=== PATIENT | female | born 1995 | race Asian ===

== ENCOUNTER 2022-08-25 10:57 | Emergency (ER) | payer OTHER ==
[2022-08-25 11:22] LABS: BASOPHILS % (AUTO) 0.2 %; EOSINOPHILS # (AUTO) 0.1 10^3/uL (0.0-0.7); HGB - HEMOGLOBIN 11.9 g/dL (12.0-16.0); LYMPHOCYTES # (AUTO) 1.8 10^3/uL (1.5-3.5); LYMPHOCYTES % (AUTO) 30.5 %; MEAN CORPUSCULAR HEMOGLOBIN 29.9 pg (27.0-31.0); MEAN CORPUSCULAR HGB CONC 32.2 g/dL (32.0-36.0); MEAN PLATELET VOLUME 9.6 fL (7.9-10.8); MONOCYTES # (AUTO) 0.3 10^3/uL (0.0-1.0); MONOCYTES % (AUTO) 5.4 %; NEUTROPHILS # (AUTO) 3.7 10^3/uL (1.5-6.6); NEUTROPHILS % (AUTO) 62.7 %; PLT - PLATELET COUNT 250 10^3/uL (130-450); RED BLOOD COUNT 3.98 10^6/uL (4.20-5.40); RED CELL DISTRIBUTION WIDTH 12.2 % (12.0-15.0); WHITE BLOOD COUNT 5.9 x10^3/uL (4.8-10.8)
[2022-08-25 11:35] LABS: ALBUMIN 4.1 g/dL (3.2-5.5); ALBUMIN/GLOBULIN RATIO 1.2 (1.0-2.2); BILIRUBIN,TOTAL 0.9 mg/dL (0.2-1.0); CALCIUM 10.1 mg/dL (8.5-10.3); CREATININE 0.5 mg/dL (0.4-1.0); TOTAL PROTEIN 7.6 g/dL (6.7-8.2)
--- NOTE | 2022-08-25 13:03 | ED Physician Documentation ---
History of Present Illness - Stated complaint Stated Complaint: VAGINAL BLEEDING - Chief complaint Chief Complaint: Abd Pain - Additonal information Additional information: 26-year-old female presents to the emergency department for evaluation of menstrual-like vaginal bleeding in the first trimester . History is obtained from patient. Reliable historian. . LMP 06/19/2022. Patient is scheduled to see Aliyah Matthews this upcoming Thursday. She states that yesterday she was having light spotting which did not concern her as she had in her first but overnight she began having menstrual- like bleeding with some associated cramping. She is concerned that sexual intercourse a few days ago could have contributed. First was complicated by a uterine detachment which required large volume resuscitation. This was managed in [place] Review of Systems Constitutional: denies: Fever, Chills : reports: LMP (06/19/2022), Vaginal bleeding, Reviewed and negative Skin: reports: Reviewed and negative Musculoskeletal: reports: Reviewed and negative PD PAST MEDICAL HISTORY - Present Medications Home Medications: Ambulatory Orders Medication Instructions Recorded Confirmed cephALEXin [Keflex] 500 mg PO BID 7 Days #14 cap 08/25/22 - Allergies Allergies/Adverse Reactions: Allergies Allergy/AdvReac Type Severity Reaction Status Date / Time amoxicillin Allergy Hives Verified 08/25/22 11:05 PD ED PE NORMAL - General General: Alert and oriented X 3, No acute distress - HEENT HEENT: PERRL - Neck Neck: Supple, no meningeal sign, No adenopathy - Cardiac Cardiac: RRR, No murmur - Abdomen Abdomen: Normal bowel sounds, Soft, Non tender (No abdominal tenderness elicited with exam.) - Derm Derm: Normal color, Warm and dry - Extremities Extremities: No deformity - Neuro Neuro: Alert and oriented X 3, rn lactation consultant 2-12 intact Eye Opening: Spontaneous Motor: Obeys Commands Verbal: Oriented GCS Score: 15 Results - Vitals Vitals: Vital Signs - 24 hr 08/25/22 08/25/22 11:02 13:08 Temperature 36.8 C Heart Rate 83 72 Respiratory 16 20 Rate Blood Pressure 129/75 117/81 H O2 Saturation 100 100 Oxygen O2 Source Room air - Labs Labs: Laboratory Tests 08/25/22 08/25/22 08/25/22 11:17 11:17 11:17 WBC 5.9 RBC 3.98 L Hgb 11.9 L Hct 37.0 MCV 93.0 MCH 29.9 MCHC 32.2 RDW 12.2 Plt Count 250 MPV 9.6 Neut # (Auto) 3.7 Lymph # (Auto) 1.8 [place] # (Auto) 0.3 Eos # (Auto) 0.1 Baso # (Auto) 0.0 Absolute Nucleated RBC 0.00 Nucleated RBC % 0.0 Sodium 137 Potassium 4.0 Chloride 104 Carbon Dioxide 22 Anion Gap 11.0 BUN 8 Creatinine 0.5 Estimated GFR (MDRD) 149 Glucose 78 Calcium 10.1 Total Bilirubin 0.9 AST 15 ALT 11 Alkaline Phosphatase 28 L Total Protein 7.6 Albumin 4.1 Globulin 3.5 Albumin/Globulin Ratio 1.2 Lipase 38 HCG, Quant Urine Color Urine Clarity Urine pH Ur Specific [place] Urine Protein Urine Glucose (UA) Urine Ketones Urine Occult Blood Urine Nitrite Urine Bilirubin Urine Urobilinogen Ur Leukocyte Esterase Urine RBC Urine WBC Ur Squamous Epith Cells Urine Bacteria Urine Mucus Ur Microscopic Review Urine Culture Comments Blood Type O POSITIVE 08/25/22 08/25/22 11:17 13:05 WBC RBC Hgb Hct MCV MCH MCHC RDW Plt Count MPV Neut # (Auto) Lymph # (Auto) [place] # (Auto) Eos # (Auto) Baso # (Auto) Absolute Nucleated RBC Nucleated RBC % Sodium Potassium Chloride Carbon Dioxide Anion Gap BUN Creatinine Estimated GFR (MDRD) Glucose Calcium Total Bilirubin AST ALT Alkaline Phosphatase Total Protein Albumin Globulin Albumin/Globulin Ratio Lipase HCG, Quant 498807.00 Urine Color YELLOW Urine Clarity HAZY Urine pH 7.0 Ur Specific [place] 1.015 Urine Protein NEGATIVE Urine Glucose (UA) NEGATIVE Urine Ketones NEGATIVE Urine Occult Blood MODERATE H Urine Nitrite NEGATIVE Urine Bilirubin NEGATIVE Urine Urobilinogen 0.2 (NORMAL) Ur Leukocyte Esterase NEGATIVE Urine RBC 0-5 Urine WBC 0-3 Ur Squamous Epith Cells MANY Squamous H Urine Bacteria Many H Urine Mucus Few Strands Ur Microscopic Review INDICATED Urine Culture Comments NOT INDICATED Blood Type - Rads (name of study) pelvic 1st trimester US Radiology: See rad report (IUP measuring at 9 weeks 0 days. heart rate 162. Associated right ovarian cyst. Also associated perigestational hematoma.) PD Medical Decision Making - ED course Complexity details: reviewed results, re-evaluated patient, considered differential, d/w patient ED course: 26-year-old female who is in her first trimester presents to the ER for evaluation of menstrual-like bleeding that began last night. Patient is Rh+. No abdominal tenderness was elicited on exam. I did evaluate her CBC and electrolytes no worrisome findings were seen. Moderate amount of bacteria on urinalysis. This will be treated with cephalexin as indicated in early First trimester OB ultrasound with transvaginal shows a intrauterine measuring at approximately 9 weeks 0 days. heart rate of 162. There is an associated perigestational hemorrhage which I suspect to be the cause of the vaginal bleeding. no findings of ectopic. Patient is scheduled to follow with her OB provider Aliyah Matthews on Thursday. We discussed that perigestational hemorrhage does put her at risk for a miscarriage. She was reassured that she could continue usual activity including going to the gym and she did not need pelvic rest at this juncture. We discussed the usual emergent return precautions for heavy vaginal bleeding in first trimester . Departure - Departure Disposition: 01 Home, Self Care Clinical Impression: Bacteria in urine, Threatened miscarriage in early Subchorionic hemorrhage in first trimester Qualifiers: Fetus number: single or unspecified fetus Qualified Code(s): O41.8X10 - Other specified disorders of amniotic fluid and membranes, first trimester, not applicable or unspecified; O46.8X1 - Other antepartum hemorrhage, first trimester Condition: Stable Record reviewed to determine appropriate education?: Yes Instructions: ED Miscarriage Poss Prescriptions: cephALEXin [Keflex] 500 mg PO BID 7 Days #14 cap Comments: You came to the emergency department today because she began having vaginal spotting then heavier menstrual-like bleeding yesterday evening and this morning. The ultrasound shows that you are approximately 9 weeks . The baby had a good heart rate of 162. However there was a complicated finding of a perigestational or subchorionic hemorrhage. This is where the uterus and the placenta may separate a little bit and cause bleeding. This does put you at risk for early miscarriage. However many women will go on to have a normal with subchorionic hemorrhages. Your urine does have a fair amount of bacteria in it. This is typically treated in early though clinically I do not think you have a urinary tract infection. I sent a prescription to the [facility] in [place]. It is important that you follow closely with Aliyah Ames this Thursday as already scheduled. You can continue your usual activities. You do not need pelvic rest. Reasons to return to the emergency department would include severe vaginal bleeding which could be characterized as saturating a menstrual pad every hour for 4 to 6 hours or more, any dizziness or lightheadedness, sudden severe chest pain, shortness of air or any fainting episodes
[2022-08-25 13:09] VITALS: BP 117/81
[2022-08-25 13:19] LABS: BILIRUBIN,URINE NEGATIVE (NEGATIVE); GLUCOSE, URINE (UA) NEGATIVE (NEGATIVE); KETONES,URINE (UA) NEGATIVE (NEGATIVE); LEUKOCYTE ESTERASE, URINE NEGATIVE (NEGATIVE); NITRITE,URINE NEGATIVE (NEGATIVE); OCCULT BLOOD,URINE MODERATE (NEGATIVE); PROTEIN,URINE NEGATIVE (NEGATIVE); UROBILINOGEN,URINE 0.2 (NORMAL) E.U./dL (NORMAL)
[2022-08-25 13:26] LABS: CLARITY,URINE HAZY (CLEAR)
[2022-08-25 13:27] LABS: BACTERIA,URINE Many /HPF (None Seen); MUCUS,URINE Few Strands; RBC,URINE 0-5 /HPF (0-5); SQUAMOUS EPITHELIAL CELL,UR MANY Squamous (<= Few); WBC,URINE 0-3 /HPF (0-5)
--- NOTE | 2022-08-25 13:42 | Ultrasound Report ---
PROCEDURE: OB First Trimester w/TV INDICATIONS: first trimester bleeding OUTSIDE/PRIOR DATING DATA: Last menstrual period (LMP): 06/19/2022. LMP-based estimated date of delivery (HUMZA): 03/26/2023. First dating scan (date and location): 08/25/2022. Estimated date of delivery (HUMZA) from first dating scan: 03/30/2023. The below data below was generated using the working HUMZA of 03/30/2023 TECHNIQUE: Real-time scanning was performed of the fetus and maternal pelvic organs, with image documentation. Endovaginal scanning was also performed to better visualize the fetus and maternal ovaries. COMPARISON: None FINDINGS: Embryo: Booker-rump length is 2.35 cm corresponding with a 9 week 4 day gestation. Heart rate: 162 bpm Perigestational bleed in the lower uterine segment measures 2.7 x 0.4 x 1.5 cm Measurement variability in dating: +/- 4 weeks by LMP, +/- 7 days by mean sac diameter (use before 6 weeks gestation if crown-rump length not able to be measured), +/- 5 days by crown-rump length (6-12 weeks gestation). Maternal organs: Ovaries right sided corpus luteum cyst. Left ovary unremarkable. IMPRESSION: 1. Single live intrauterine consistent with 19 week 0 day gestation by current ultrasound. 2. Perigestational bleed 2.7 x 0.4 cm Reviewed by: Emmett Carmen MD on 08/25/2022 12:41 PM AKST Approved by: Emmett Carmen MD on 08/25/2022 12:41 PM AKST Station ID: [id number]
== END 2022-08-25 13:50 | disposition home or self-care (01) ==
LOC: ED 10:57
DX: O41.8X10 Other specified disorders of amniotic fluid and membranes, first trimester, not applicable or unspecified (principal); O20.0 Threatened abortion; Z3A.09 9 weeks gestation of pregnancy; O28.8 Other abnormal findings on antenatal screening of mother
CPT/HCPCS: 36415; 80053; 81001; 81003; 83690; 84702; 85025; 86900; 86901; 87086; 99284

== ENCOUNTER 2022-08-29 12:51 | Outpatient (CLI) | payer OTHER ==
[2022-08-29 13:10] LABS: BASOPHILS % (AUTO) 0.3 %; EOSINOPHILS % (AUTO) 0.4 %; HCT - HEMATOCRIT 35.6 % (37.0-47.0); HGB - HEMOGLOBIN 11.6 g/dL (12.0-16.0); LYMPHOCYTES # (AUTO) 1.6 10^3/uL (1.5-3.5); MEAN CORPUSCULAR HEMOGLOBIN 30.3 pg (27.0-31.0); MEAN CORPUSCULAR HGB CONC 32.6 g/dL (32.0-36.0); MEAN PLATELET VOLUME 9.9 fL (7.9-10.8); MONOCYTES # (AUTO) 0.3 10^3/uL (0.0-1.0); MONOCYTES % (AUTO) 4.3 %; NEUTROPHILS % (AUTO) 71.6 %; PLT - PLATELET COUNT 242 10^3/uL (130-450); RED BLOOD COUNT 3.83 10^6/uL (4.20-5.40); RED CELL DISTRIBUTION WIDTH 12.4 % (12.0-15.0)
[2022-08-30 08:09] LABS: HBsAG SCREEN Negative (Negative)
[2022-08-31 03:38] LABS: RPR Non Reactive (Non Reactive)
[2022-08-31 04:07] LABS: HCV AB <0.1 s/co ratio (0.0-0.9)
[2022-08-31 09:08] LABS: HIV SCREEN 4TH GENERATION Non Reactive (Non Reactive)
[2022-08-31 16:08] LABS: VARICELLA-ZOSTER AB IGG 150 index (Immune >165)
== END 2022-08-29 12:52 | disposition home or self-care (01) ==
LOC: LAB 12:51
PROVIDERS: ATTEND Nurse Practitioner Obstetrics & Gynecology
DX: Z36.89 Encounter for other specified antenatal screening (principal)
CPT/HCPCS: 36415; 85025; 86592; 86762; 86787; 86803; 86850; 86900; 86901; 87340; 87389

== ENCOUNTER 2023-02-19 11:27 | Outpatient (CLI) | payer OTHER ==
[2023-02-19 12:12] VITALS: BP 108/67; O2SAT 100
[2023-02-19 12:37] LABS: BILIRUBIN,URINE NEGATIVE (NEGATIVE); GLUCOSE, URINE (UA) NEGATIVE (NEGATIVE); KETONES,URINE (UA) NEGATIVE (NEGATIVE); LEUKOCYTE ESTERASE, URINE NEGATIVE (NEGATIVE); NITRITE,URINE NEGATIVE (NEGATIVE); OCCULT BLOOD,URINE NEGATIVE (NEGATIVE); PROTEIN,URINE NEGATIVE (NEGATIVE); UROBILINOGEN,URINE 0.2 (NORMAL) E.U./dL (NORMAL)
[2023-02-19 12:43] LABS: CLARITY,URINE CLEAR (CLEAR)
--- NOTE | 2023-02-19 13:16 | PROVIDER PROGRESS NOTE ---
- HPI Chief Complaint: Labor Current : Vital Signs Temperature 97.9 F 02/19/23 11:40 Heart Rate 77 02/19/23 11:40 Respiratory Rate 16 02/19/23 11:40 Blood Pressure 108/67 02/19/23 11:40 O2 Saturation 100 02/19/23 11:40 Temperature 97.9 F 02/19/23 12:09 Heart Rate 77 02/19/23 11:40 Respiratory Rate 16 02/19/23 11:40 Blood Pressure 108/67 02/19/23 11:40 O2 Saturation 100 02/19/23 11:40 If not protocol: Oxygen Flow, liters/minute 27yo @ 35w by LMP presents as encouraged by [facility] emergency department nurse for ? missing mucus plug and stomach pain overnight. complicated by: h/o uterine inversion and PPH with her last delivery 3y ago, requiring blood transfusion was reduced manually with balloon tamponade x24h and then balloon removed. pt was awake and in LDRP - did not require OR. bleeding in first trimester - resolved scant ANC 2'2 / FOB deployed / she went to [place] to be with her family - FOB has now returned. PMH: denies PSH: denies POB: last baby was 40w5d IOL GDM no PIH no did have anemia PGYN: denies regular period when not , no STIs no h/o problems with uterus and ovaries does struggle with UTIs and BV and not in Neds: PNV, fish oil, magnesium sometimes All: amox - rash Soc: neg x3, soda maybe 1x / week her support is her FOB Darek and her family in [place] her confidant now and as a child is her mom Fam: unremarkable Wellness: diet is improved now that she is back home. - Exam Pt well NAD appears healthy no respiratory distress positive affect VSS NST: 130 mod marnie + A cells no D cells reactive Cx: cl/th/hi UDip: no sign of infection. Ext: neg CCE - Procedures OB Procedure Performed: NST NST Procedure: 130 mod marnie + A cells no D cells reactive reassuring Service Date of procedure: 02/19/23 - Plan Plan: OK to D/C home with precautions -- attempted to get an ER follow up appt at [facility] and could not because needs a referral sent from [facility] emergency department - even though ER follow up, 35w , and high risk -- attempted to get melita U/S scheduled and could not today, will schedule from [facility] -- has PCP appt on to get referral -- precautions reviewed -- f/u PRN and if care not established then return to triage.
== END 2023-02-19 13:16 | disposition home or self-care (01) ==
LOC: WFO 11:27 → FBP 11:27 → WFO 13:16
PROVIDERS: ATTEND Obstetrics & Gynecology
DX: O99.891 Other specified diseases and conditions complicating pregnancy (principal); R10.9 Unspecified abdominal pain; O09.893 Supervision of other high risk pregnancies, third trimester; Z3A.35 35 weeks gestation of pregnancy; Z87.440 Personal history of urinary (tract) infections
CPT/HCPCS: 59025; 81001; 81003; 87086; 99215

== ENCOUNTER 2023-03-05 08:00 | Outpatient (CLI) | payer OTHER | END 2023-03-05 23:59 | disposition home or self-care (01) | LOC: LAB.WC 08:00 | PROVIDERS: ATTEND Obstetrics & Gynecology | DX: Z36.85 Encounter for antenatal screening for Streptococcus B (principal) | CPT/HCPCS: 87797 ==

== ENCOUNTER 2023-03-27 07:12 | Outpatient (CLI) | payer OTHER ==
--- NOTE | 2023-04-22 11:40 | PROCEDURE REPORT ---
- HPI Diagnosis/Indication for NST: Post-dates gestation Current EDU 03/26/23 Gestation 40 Weeks and 1 Days 2 Para 1 - NST Procedure NST Procedure Start Date 03/27/23 Start Time 07:30 Stop Time 08:00 Vibroacoustic Stimulation Used No Patient States Movement Yes EFM: 140s, moderate variability, positive 15x15 accelerations, no decelerations Rock[place]: no contractions NST reactive/Cat 1 Performed and read 03/27/23 - Results and Plan Plan: 27yo at 40.1w presenting for NST for post dates - NST reactive - Follow up as scheduled
== END 2023-03-27 08:42 | disposition home or self-care (01) ==
LOC: WFO 07:12 → FBP 07:15 → WFO 08:42
PROVIDERS: ATTEND Obstetrics & Gynecology
DX: O48.0 Post-term pregnancy (principal); Z3A.40 40 weeks gestation of pregnancy
CPT/HCPCS: 59025

== ENCOUNTER 2023-03-28 16:40 | Inpatient (IN) | payer OTHER ==
[2023-03-28] MEDS ORDERED: LACTATED RINGERS 1,000 ML IV PRN (16:52)
[2023-03-28] MEDS ORDERED: METHYLERGONOVINE 0.2 MG/ML VIAL IM PRN (16:52)
[2023-03-28] MEDS ORDERED: NIFEdipine 10 MG CAPSULE PO PRN (16:52)
[2023-03-28] MEDS ORDERED: LABETALOL 20 MG/4 ML SYRINGE IVP PRN ×3 (16:52)
[2023-03-28] MEDS ORDERED: TERBUTALINE 1 MG/ML VIAL SUBQ PRN (16:52)
[2023-03-28] MEDS ORDERED: CARBOPROST TROMETHAMINE 250 MCG/ML AMP IM PRN (16:52)
[2023-03-28] MEDS ORDERED: OXYTOCIN/SODIUM CHLORIDE 500 ML IV PRN (16:52)
[2023-03-28] MEDS ORDERED: lidocaine 1% 20 ML MDV ID PRN (16:52)
[2023-03-28] MEDS ORDERED: OXYTOCIN 10 UNIT/ML VIAL IM PRN (16:52)
[2023-03-28] MEDS ORDERED: fentaNYL 100 MCG/2 ML VIAL IVP PRN (16:52)
[2023-03-28] MEDS ORDERED: TRANEXAMIC ACID IN NACL 1,000 MG/100 ML BAG IV PRN (16:52)
[2023-03-28] MEDS ORDERED: SODIUM CHLORIDE FLUSH 0.9% 10 ML SYRINGE IVP PRN (16:52)
[2023-03-28] MEDS ORDERED: hydrALAZINE INJ 20 MG/ML VIAL IVP PRN ×2 (16:52)
[2023-03-28] MEDS ORDERED: miSOPROStoL 200 MCG TABLET PR ONE (16:56)
[2023-03-28] MEDS ORDERED: SODIUM CHLORIDE FLUSH 0.9% 10 ML SYRINGE IVP SCH (17:00)
[2023-03-28 18:17] LABS: BASOPHILS % (AUTO) 0.4 %; EOSINOPHILS % (AUTO) 0.8 %; HCT - HEMATOCRIT 33.1 % (37.0-47.0); HGB - HEMOGLOBIN 10.9 g/dL (12.0-16.0); LYMPHOCYTES # (AUTO) 1.7 10^3/uL (1.5-3.5); LYMPHOCYTES % (AUTO) 31.7 %; MEAN CORPUSCULAR HEMOGLOBIN 30.2 pg (27.0-31.0); MEAN CORPUSCULAR HGB CONC 32.9 g/dL (32.0-36.0); MEAN CORPUSCULAR VOLUME 91.7 fL (81.0-99.0); MEAN PLATELET VOLUME 11.7 fL (7.9-10.8); MONOCYTES # (AUTO) 0.4 10^3/uL (0.0-1.0); MONOCYTES % (AUTO) 8.1 %; NEUTROPHILS # (AUTO) 3.1 10^3/uL (1.5-6.6); NEUTROPHILS % (AUTO) 58.6 %; PLT - PLATELET COUNT 192 10^3/uL (130-450); RED BLOOD COUNT 3.61 10^6/uL (4.20-5.40); RED CELL DISTRIBUTION WIDTH 13.6 % (12.0-15.0); WHITE BLOOD COUNT 5.3 x10^3/uL (4.8-10.8)
[2023-03-28 18:31] LABS: ALBUMIN 3.6 g/dL (3.2-5.5); ALBUMIN/GLOBULIN RATIO 1.2 (1.0-2.2); BILIRUBIN,TOTAL 0.6 mg/dL (0.2-1.0); CREATININE 0.4 mg/dL (0.6-1.3); POTASSIUM 3.6 mmol/L (3.5-4.5); TOTAL PROTEIN 6.5 g/dL (6.4-8.9)
--- NOTE | 2023-03-28 19:22 | ANESTHESIA ---
Pre-Anesthesia VS, & Labs - Diagnosis induction of labor - Procedure labor epidural Vital Signs: Temp Pulse Resp BP Pulse Ox O2 Flow Rate 36.7 C 79 16 121/79 100 03/28/23 18:03/28/23 18:03/28/23 18:03/28/23 18:03/28/23 17:19 Height: 5 ft 3 in Weight (kg): 79.56 kg Body Mass Index: 31.0 BMI Classification: Obese - NPO Other - Is Patient ?: Yes - Lab Results Current Lab Results: Laboratory Tests 03/28/23 17:55: Sodium 135, Potassium 3.6, Chloride 106, Carbon Dioxide 22, Anion Gap 7.0, BUN 9, Creatinine 0.4 L, Estimated GFR (MDRD) 191, Glucose 96, Calcium 10.0, Total Bilirubin 0.6, AST 12, ALT 6 L, Alkaline Phosphatase 133 H, Total Protein 6.5, Albumin 3.6, Globulin 2.9, Albumin/Globulin Ratio 1.2 03/28/23 17:55: WBC 5.3, RBC 3.61 L, Hgb 10.9 L, Hct 33.1 L, MCV 91.7, MCH 30.2, MCHC 32.9, RDW 13.6, Plt Count 192, MPV 11.7 H, Neut # (Auto) 3.1, Lymph # (Auto) 1.7, [place] # (Auto) 0.4, Eos # (Auto) 0.0, Baso # (Auto) 0.0, Absolute Nucleated RBC 0.00, Nucleated RBC % 0.0 Fish Bones: 03/28/23 17:55 03/28/23 17:55 Home Medications and Allergies Active Medications Carboprost Tromethamine (Carboprost Tromethamine 250 Mcg/Ml Amp) 250 mcg IM .ONCE PRN PRN Reason: Hemorrhage Fentanyl (Fentanyl 100 Mcg/2 Ml Vial) 50 mcg IVP Q1H PRN PRN Reason: Severe Pain (score 7-10) Hydralazine HCl (Hydralazine Inj 20 Mg/Ml Vial) 5 - 10 mg IVP Q20M PRN; Protocol PRN Reason: SBP> or= 160 OR DBP> or= 110 Hydralazine HCl (Hydralazine Inj 20 Mg/Ml Vial) 10 mg IVP .ONCE PRN; Protocol PRN Reason: SBP> or= 160 OR DBP> or= 110 Lactated Ringer's (Lr) 500 mls @ 999 mls/hr IV PRN PRN PRN Reason: PER PHYSICIAN ORDER Oxytocin/Sodium Chloride (Pitocin/Sodium Chloride) 500 mls @ 999 mls/hr IV PRN PRN; Protocol PRN Reason: POST- HEMORR PREVENTION Tranexamic Acid (Tranexamic 1,000 Mg/100ml-Nacl) 1,000 mg in 100 mls @ 600 mls/hr IV Q30M PRN PRN Reason: EBL >1200mL and within 3hr Labetalol HCl (Labetalol 20 Mg/4 Ml Syringe) 20 - 80 mg IVP Q10M PRN; Protocol PRN Reason: SBP> or= 160 OR DBP> or= 110 Labetalol HCl (Labetalol 20 Mg/4 Ml Syringe) 20 mg IVP .ONCE PRN; Protocol PRN Reason: SBP> or= 160 OR DBP> or= 110 Labetalol HCl (Labetalol 20 Mg/4 Ml Syringe) 20 - 40 mg IVP Q10M PRN; Protocol PRN Reason: SBP> or= 160 OR DBP> or= 110 Lidocaine HCl (Lidocaine 1% 20 Ml Mdv) 20 ml ID .ONCE PRN PRN Reason: PERINEAL REPAIR Stop: 03/31/23 16:52 Methylergonovine Maleate (Methylergonovine 0.2 Mg/Ml Vial) 0.2 mg IM .ONCE PRN PRN Reason: Hemorrhage Misoprostol (Misoprostol 100 Mcg Tablet) 25 mcg VG Q4H PORSHA Nifedipine (Nifedipine 10 Mg Capsule) 10 - 20 mg PO Q20M PRN; Protocol PRN Reason: SBP> or= 160 OR DBP> or= 110 Oxytocin (Oxytocin 10 Unit/Ml Vial) 10 unit IM .ONCE PRN PRN Reason: Step One if no IV access. Sodium Chloride (Sodium Chloride Flush 0.9% 10 Ml Syringe) 10 ml IVP PRN PRN PRN Reason: NEEDED PER PROVIDER ORDERS Sodium Chloride (Sodium Chloride Flush 0.9% 10 Ml Syringe) 10 ml IVP Q8H PORSHA Terbutaline Sulfate (Terbutaline 1 Mg/Ml Vial) 0.25 mg SUBQ .ONCE PRN PRN Reason: Tachystole Allergies/Adverse Reactions: Allergies Allergy/AdvReac Type Severity Reaction Status Date / Time amoxicillin Allergy Hives Verified 08/25/22 11:05 Anes History & Medical History - Anesthetic History Anesthesia Complications: reports: No previous complications Family history of Anesthesia Complications: Denies Family history of Malignant Hyperthermia: Denies - Medical History Cardiovascular: reports: None Pulmonary: reports: None Gastrointestinal: reports: None Urinary: reports: None Neuro: reports: None Musculoskeletal: reports: None Endocrine/Autoimmune: reports: None Blood Disorders: reports: None Smoking Status: Former smoker Psychosocial: reports: No issues indicated Other Past Medical History: uterine inversion with PPH Exam General: Alert, Oriented x3, Cooperative Dental: WNL Mouth Openin Fingerbreadth Neck Mobility: Normal Mallampati classification: II Thyromental Distance: 4-6 cm Respiratory: Lungs clear Cardiovascular: Regular rate Plan Anesthesia Type: Epidural Consent for Procedure(s) Verified and Reviewed: Yes Code Status: Attempt Resuscitation ASA classification: 2-Mild systemic disease Is this case an emergency?: No
[2023-03-28] MEDS: miSOPROStoL 100 MCG TABLET VG SCH (20:39)
--- NOTE | 2023-03-28 21:59 | HISTORY & PHYSICAL EXAMINATION ---
Admit History - Visit Reason Visit Reason: Other - : 2 Parity: 1 Care: positive: [facility] Risk/History: positive: None, Other (h/o uterine inversion and post hemorrhage 2L with last baby) Complications This : positive: None Smoking Status: Former smoker - Other Maternal History Other Maternal History: 27yo @ 40w2d by LMP presents for scheduled IOL complicated by: h/o uterine inversion and PPH with her last delivery 3y ago, requiring blood transfusion was reduced manually with balloon tamponade x24h and then balloon removed. pt was awake and in LDRP - did not require OR. bleeding in first trimester - resolved scant ANC 2'2 / FOB deployed / she went to [place] to be with her family - FOB has now returned. PMH: denies PSH: denies POB: last baby was 40w5d IOL GDM no PIH no did have anemia PGYN: denies regular period when not , no STIs no h/o problems with uterus and ovaries does struggle with UTIs and BV and not in Neds: PNV, fish oil, magnesium sometimes All: amox - rash Soc: neg x3, soda maybe 1x / week her support is her FOB Darek and her family in [place] her confidant now and as a child is her mom Fam: unremarkable Wellness: diet is improved now that she is back home LMP: 06/19/22 HUMZA by LMP: 03/26/23 US:08/29/22 Final HUMZA: Problems: HISTORY OF PREECLAMPSIA, UTERINE INVERSION, PPH, ON ASA. [ ] stable, continue to monitor [ ] plan: 2 large bore IVs Pre- Weight:167 BMI: 29.6 Blood type: O+ CBC: PLT 242 HCT 35.6 HGB 11.6 RUB: imm VZV:equivical HBsAg: neg HepC: neg RPR/AB-EIA:NR HIV:neg PAP: doesn't remember when, approx 2+ years ago, normal GC/CT:neg HSV: denies self/partner Genetic testing: too late Covid: no vaccines, had covid 2019 Flu: last fall FAS: -- not in records -- she never had one. now is 37 weeks. ordered. 50gm OGCT: ordered Feb TDAP: accepts 03/05 Breast Pump: given GBS: collected 03/05- NEGATIVE VSS NAD Conjunctiva pink, pale sclera +S1, S2, CTAB, no increased work of breathing Abd soft, NT, ND, visibly gravid at term Rob: cephalic 8# EFM: 140mod marnie + A cells no D cells, reactive [place]: rare ctx Cx: closed per RN Ext: neg CCE . - HPI Current EDU 03/26/23 Gestation 40 Weeks and 2 Days 2 Vital Signs Temperature 97.5 F L 03/28/23 17:19 Heart Rate 88 03/28/23 17:19 Respiratory Rate 22 03/28/23 17:19 Blood Pressure 121/79 03/28/23 17:19 O2 Saturation 100 03/28/23 17:19 Temperature 98.1 F 03/28/23 18:09 Heart Rate 79 03/28/23 18:09 Respiratory Rate 16 03/28/23 18:09 Blood Pressure 121/79 03/28/23 18:09 O2 Saturation 100 03/28/23 17:19 If not protocol: Oxygen Flow, liters/minute - NST Procedure NST Procedure Start Time 07:30 Stop Time 08:00 Meds/Allgy - Home Medications Home Medications: Ambulatory Orders Medication Instructions Recorded Confirmed cephALEXin [Keflex] 500 mg PO BID 7 Days #14 cap 08/25/22 - Allergies Allergies/Adverse Reactions: Allergies Allergy/AdvReac Type Severity Reaction Status Date / Time amoxicillin Allergy Hives Verified 08/25/22 11:05 Physical - Abdominal Exam Vital Signs: Temp Pulse Resp BP Pulse Ox O2 Flow Rate 98.1 F 79 16 121/79 100 03/28/23 18:09 03/28/23 18:09 03/28/23 18:09 03/28/23 18:09 03/28/23 17:19 Plan for Labor - Plan For Labor I expect patient to be DC'd or transferred within 96 hours.: Yes Plan for Labor: 27yo @ 40w2d for IOL 2'2 post dates, h/o uterine inversion, h/o PPH, h/o pre eclampsia FWB - cat 1, cEFM IOL - begin miso -- augment with pit when indicated h/o PPH / uterine inversion - -- care with delivery -- call OR team in with onset of pushing -- has [address] -- would accept blood transfusion if needed -- have units available.
[2023-03-29] MEDS: miSOPROStoL 100 MCG TABLET VG SCH (00:54)
[2023-03-29] MEDS ORDERED: ROPIVACAINE 0.2% 0 MG/0 ML BAG EP ONE (06:06)
[2023-03-29] MEDS ORDERED: ONDANSETRON ODT 4 MG TABLET TL PRN (06:37)
[2023-03-29] MEDS ORDERED: ONDANSETRON 4 MG/2 ML VIAL IVP PRN (06:37)
[2023-03-29] MEDS ORDERED: LACTATED RINGERS 1,000 ML IV PRN (06:37)
[2023-03-29] MEDS ORDERED: WITCH HAZEL/GLYCERIN 1 PAD TOP PRN (06:37)
--- NOTE | 2023-03-29 06:44 | DELIVERY NOTE ---
Delivery Note - Labor Labor: positive: Spontaneous - Delivery Method Delivery Method: positive: Spontaneous vaginal delivery - Cervical Ripening Method Cervical Ripening Method: positive: Misoprostil - Presentation Presentation: positive: Vertex - Nuchal Cord Nuchal Cord: positive: Present - Anesthetic Anesthetic Type: - Amniotic Fluid Description Amniotic Fluid Description: positive: Clear - Episiotomy Type Episiotomy Type: positive: None - Laceration Laceration: positive: 1st degree, Other (periclitoral, hemostatic without repair) - Delivery Outcome Delivery Outcome: positive: Livebirth - : positive: Placed in direct skin contact with mother, Suctioned sex: positive: Female - Cord Cord: positive: 3 vessels - Placenta Placenta: positive: Intact, Spontaneous - Estimated Blood Loss Estimated Blood Loss (in cc): 300 - Post Delivery Events Post Delivery Events: positive: No post delivery events - Delivery Comments (Free Text/Narrative) Delivery Comments (Free Text/Narrative): On 29 Mar 2023 at 0608 patient delivered a viable female over intact perineum. Baby ROT, L shoulder anterior, nuchal x1 delivered through, shoulders and body delivered without difficulty. Baby crying spontaneously, placed on maternal abdomen, apgars 8/9. Perineum inspected, 1' laceration, pressure applied. Cord clamped and cut x2. Placenta delivered spontaneously at 0614, inspected, found to be intact with 3VC. Fundus firm with IV pitocin. periclitoral lac noted and hemostatic without repair with good reapproximation, 1' laceration hemostatic. EBL 200. All counts correct. Both mom and baby recovering well. Stage 1: 1h28m Stage 2: 10m Stage 3: 6m.
[2023-03-29] MEDS: ACETAMINOPHEN 325 MG TABLET PO PRN (07:52)
[2023-03-29] MEDS: IBUPROFEN 600 MG TABLET PO PRN ×2 (07:53→16:59)
[2023-03-29] MEDS: DOCUSATE SODIUM 100 MG CAPSULE PO SCH ×2 (09:36→20:42)
[2023-03-29 12:25] VITALS: O2SAT 100
--- NOTE | 2023-03-30 06:15 | DISCHARGE SUMMARY ---
"Discharge Summary Admit Date: 03/28/23 Discharge Date: 03/30/23 Discharging Provider: yarelis Primary Care Provider: yarelis Code Status: Attempt Resuscitation Condition at Discharge: Good Discharge Disposition: 01 Home, Self Care - DIAGNOSES Admission Diagnoses: 27yo @ 40w2d for IOL 2'2 post dates, h/o uterine inversion, h/o PPH, h/o pre eclampsia FWB - cat 1, cEFM IOL - begin miso -- augment with pit when indicated h/o PPH / uterine inversion - -- care with delivery -- call OR team in with onset of pushing -- has [address] -- would accept blood transfusion if needed -- have units available. Discharge Diagnoses with Status of Each Condition: IUP @ 40w -- resolved -- all milestones met h/o uterine inversion, PPH, preEclampsia -- only with first -- this delivery without incident - HPI History of Present Illness: 27yo @ 40w2d by LMP presents for scheduled IOL complicated by: h/o uterine inversion and PPH with her last delivery 3y ago, requiring blood transfusion was reduced manually with balloon tamponade x24h and then balloon removed. pt was awake and in LDRP - did not require OR. bleeding in first trimester - resolved scant ANC 2'2 / FOB deployed / she went to [place] to be with her family - FOB has now returned. - CONSULTS | PROCEDURES Procedures: On 29 Mar 2023 at 0608 patient delivered a viable female infant over intact perineum. Baby ROT, L shoulder anterior, nuchal x1 delivered through, shoulders and body delivered without difficulty. Baby crying spontaneously, placed on maternal abdomen, apgars 8/9. Perineum inspected, 1' laceration, pressure applied. Cord clamped and cut x2. Placenta delivered spontaneously at 0614, inspected, found to be intact with 3VC. Fundus firm with IV pitocin. periclitoral lac noted and hemostatic without repair with good reapproximation, 1' laceration hemostatic. EBL 200. All counts correct. Both mom and baby recovering well. Stage 1: 1h28m Stage 2: 10m Stage 3: 6m. - HOSPITAL COURSE Hospital Course: IOL with miso routine care - ALLERGIES Allergies/Adverse Reactions: Allergies Allergy/AdvReac Type Severity Reaction Status Date / Time amoxicillin Allergy Hives Verified 08/25/22 11:05 - PHYSICAL EXAM AT DISCHARGE General Appearance: positive: No acute distress Eyes Bilateral: positive: Normal inspection Neck: positive: Nml inspection Respiratory: positive: Chest non-tender, No respiratory distress Cardiovascular: positive: Regular rate & rhythm, No murmur, No gallop Abdomen: positive: Non-tender, Other (loly 1 below U) Skin: positive: Color nml, No rash, Warm Extremities: positive: Non-tender, Nml appearance, No pedal edema Neurologic/Psychiatric: positive: Oriented x3 - LABS Result Diagrams: 03/28/23 17:55 03/28/23 17:55 - QUALITY (Female Hip Fx Only) Was patient sent home on osteoporosis medication?: No - FOLLOW UP Follow Up: yarelis - 1-2 weeks sooner to peds - TIME SPENT Time Spent in Discharge (Minutes): 30"
--- NOTE | 2023-03-30 06:22 | Discharge Plan ---
Discharge Plan Problem Reviewed?: Yes Disposition: Home, Self Care Condition: Good Diet: Regular Activity Restrictions: routine Shower Restrictions: No Driving Restrictions: No Weight Bearing: Full Weight Instruction Topics: Vaginal After Assessment: healthy ready to go home all post milestones met all discharge instructions and precautions reviewed Additional Instructions or Follow Up instructions: f/u with dr. gamez in 1-2 weeks No Smoking: If you smoke, Please STOP! Call for help. Follow-up with: Pavel Gamez MD [Provider Admit Priv/Credential] -
[2023-03-30 10:09] VITALS: BP 123/81
[2023-03-30] MEDS: DOCUSATE SODIUM 100 MG CAPSULE PO SCH (11:14)
[2023-03-30] MEDS: IBUPROFEN 600 MG TABLET PO PRN (11:14)
[2023-03-30] MEDS: ACETAMINOPHEN 325 MG TABLET PO PRN (11:14)
--- NOTE | 2023-03-30 11:19 | Labor Flowsheet ---
Labor Flowsheet Datetime Report Generated by CPN: 03/30/2023 11:19 Datetime: 03/29/2023 16:18 VITAL SIGNS NBP Sys/Eugenie/Mean (mmHg): 116 : 64 : 76 Pulse: 67 LaborFlag: Labor Datetime: 03/29/2023 08:20 SpO2 (%): 100 Datetime: 03/29/2023 06:07 ASSESSMENT A Monitor Mode: External US Monitor Interventions for FHR: Ultrasound Adjusted FHR Baseline Rate : 110 Variability: Moderate 6-25 bpm Accelerations: Prolonged Decelerations: Variable STAGE 2 Pushing: Urge to Push Pushing Position: Pushing Left Side Pushing Progress: Descent with Pushing Datetime: 03/29/2023 06:04 UTERINE ACTIVITY Monitor Mode: External Frequency (min): 1-2 Quality: Strong Duration (sec): 30-60 Resting Tone (Palpate): Relaxed Actions for Decelerations: Other ASSESSMENT B Monitor Mode: External US Datetime: 03/29/2023 05:58 FHR Baseline Changes: No Baseline Change VAGINAL EXAM Dilatation (cm): 10.0 Effacement (%): 100 Station: 2 Exam by: Dr Gamez Membranes Ruptured Date/Time: 03/29/2023 05:58 Membranes Rupture Method: Spontaneous Amniotic Fluid Color: Clear Amniotic Fluid Amount: Moderate Amniotic Fluid Odor: Normal Vaginal Bleeding: None COMMUNICATION Communication: RN at Bedside; RN Reviewed Strip Provider Notified (Name): Dr Gamez notified [facility]/ to bedside Datetime: 03/29/2023 05:38 Comfort Measures: Breathing/Relaxation; Coaching; Family Support; Anesthesia Notified Notification Reason: Labor Status; Patient Request Communication Comments: Asking for epidural, Carlson called Datetime: 03/29/2023 05:37 Category: Category II Datetime: 03/29/2023 05:24 Pattern: Normal: <= 5 Contractions in 10 Minutes Datetime: 03/29/2023 05:08 Monitor Interventions for UA: [place] Adjusted Datetime: 03/29/2023 05:05 Stage of : Labor Datetime: 03/29/2023 04:55 Cervix, Consistency: Soft Cervix, Position: Midposition Datetime: 03/29/2023 04:04 Respirations: 16 Temperature (C): 36.7 Temperature Route: Oral PAIN Pain Scale: 3 Pain Presence: Intermittent Pain Type: Cramping Datetime: 03/29/2023 01:00 Patient Position/Activity: Right Lateral Datetime: 03/29/2023 00:52 Lie 'A': Longitudinal MEDICATIONS Cervical Ripening Agents: Cytotec @ PATIENT CARE Procedures: Sterile Vag Exam Datetime: 03/29/2023 00:15 Pain Location: Abdomen I/O Interventions: Clear Liquids Given Datetime: 03/28/2023 23:54 Comments: fetus very active now per pt and palpation. Afrible Datetime: 03/28/2023 22:21 Pitocin Checklist: Uterus Palpates Soft between Contractions Datetime: 03/28/2023 22:18 Contraction Comments: pt states very mild Datetime: 03/28/2023 20:47 Membrane Status: Intact MATERNAL ASSESSMENT Level of Consciousness: Alert DTR's/Clonus: DTRs 1+ Headache: Denies Breath Sounds, Left: Clear and Equal Nausea/Vomiting: Denies RUQ Epigastric Pain: Denies TEACHING Instructional Method: Verbal Plan of Care: Plan of Care Discussed Labor/Induction: Cervical Ripening; Induction Datetime: 03/28/2023 19:52 Resting Tone IUP (mmHg): soft Intensity IUP (mmHg): mild Datetime: 03/28/2023 19:51 Teaching Comments: instructed pt and family of POC for Miso induction Datetime: 03/27/2023 07:34 Patient Care Comments: mom sat up in bed
== END 2023-03-30 11:18 | disposition home or self-care (01) | DRG 807 ==
LOC: WFO 16:40 → FBP 16:42 → WFO 16:51 → FBP 16:52
PROVIDERS: ADMIT Obstetrics & Gynecology; ATTEND Obstetrics & Gynecology
PROC: 3E033VJ Introduction of Other Hormone into Peripheral Vein, Percutaneous Approach (ICD-10-PCS; 2023-03-28)
PROC: 3E0DXGC Introduction of Other Therapeutic Substance into Mouth and Pharynx, External Approach (ICD-10-PCS; 2023-03-28)
PROC: 10E0XZZ Delivery of Products of Conception, External Approach (ICD-10-PCS; principal; 2023-03-29)
DX: O48.0 Post-term pregnancy (principal); Z37.0 Single live birth; Z3A.40 40 weeks gestation of pregnancy; Z87.59 Personal history of other complications of pregnancy, childbirth and the puerperium; O69.81X0 Labor and delivery complicated by cord around neck, without compression, not applicable or unspecified; O70.0 First degree perineal laceration during delivery
CPT/HCPCS: 80053; 85025; 86850; 86900; 86901; 86920; A9270; J7120

== ENCOUNTER 2024-02-26 13:21 | Outpatient (CLI) | payer OTHER ==
--- NOTE | 2024-02-26 20:29 | XRAY Report ---
PROCEDURE: Knee 3V LT INDICATIONS: SPRAIN OF OTHER SPECIFIED PARTS OF LEFT KNEE TECHNIQUE: 3 views of the knee(s) were acquired. COMPARISON: None. FINDINGS: Bones: No fractures or dislocations. No suspicious bony lesions. The knee joint spaces are well pre served. Soft tissues: There is a mild knee joint effusion. No suspicious soft tissue calcifications or alba s. IMPRESSION: Mild left knee joint effusion. No focal bony abnormality seen by plain film. If it would be helpful for clinical management decision making, please consider a dedicated, schedule d knee MRI for further evaluation (assuming that there is no contraindication). Reviewed by: Parag Parrish MD on 02/26/2024 7:27 PM [facility] Approved by: Parag Parrish MD on 02/26/2024 7:27 PM [facility] Station ID: [id number]
== END 2024-02-26 23:59 | disposition home or self-care (01) ==
LOC: DI.N 13:21
PROVIDERS: ATTEND Registered Nurse
DX: S83.8X2A Sprain of other specified parts of left knee, initial encounter (principal); M25.462 Effusion, left knee

== ENCOUNTER 2024-03-03 08:00 | Outpatient (CLI) | payer OTHER ==
[2024-03-03 23:13] LABS: BACTERIAL VAGINOSIS DNA POSITIVE (NEGATIVE); CANDIDA GLABRATA DNA NEGATIVE (NEGATIVE); CANDIDA GROUP DNA POSITIVE (NEGATIVE); CANDIDA KRUSEI DNA NEGATIVE (NEGATIVE); TRICHOMONAS VAGINALIS DNA NEGATIVE (NEGATIVE)
== END 2024-03-03 23:59 | disposition home or self-care (01) ==
LOC: LAB.N 08:00
PROVIDERS: ATTEND Family Medicine
DX: N89.8 Other specified noninflammatory disorders of vagina (principal); R30.0 Dysuria
CPT/HCPCS: 81514; 87086; 87181